=== PATIENT | female | born 1985 | race Caucasian/White ===

== ENCOUNTER 2020-09-23 15:39 | Emergency (ER) | payer OTHER, MEDICAID ==
[~2020-09-23] VITALS: Ht 157.5 cm; Wt 52.2 kg
--- NOTE | 2020-09-23 15:45 | NUR ---
BIB [facility] 88 FROM AN APARTMENT COMPLEX,ACTING BIZARRE,BLOOD SUGAR 197. THE PATIENT IS ALERT AND ORIENTED X2. DENIES PAIN. IN ROOM AIR AND DENIES SOB. RESPIRATION REGULAR AND UNLABORED. ATTACHED ON A MONITOR. WILL CONTINUE TO MONITOR THE PATIENT.
[2020-09-23] MEDS ORDERED: OLANZAPINE 10 MG VIAL IM ONE ×2 (16:00→16:08)
[2020-09-23 16:28] LABS: BASOPHILS % (AUTO) 0.1 % (0.0-2.0); EOSINOPHILS % (AUTO) 0.1 % (0.0-6.0); HEMATOCRIT 42 % (33-45); HEMOGLOBIN 13.6 g/dL (11.5-14.8); LYMPHOCYTES # (AUTO) 0.4 /CMM (0.8-4.8); LYMPHOCYTES % (AUTO) 3.7 % (20.0-44.0); MEAN CORPUSCULAR HGB CONC 33 g/dl (31.0-36.0); MEAN CORPUSCULAR VOLUME 85 fL (82-100); MONOCYTES # (AUTO) 0.4 /CMM (0.1-1.30); NEUTROPHILS % (AUTO) 92.1 % (43.0-81.0); PLATELET COUNT (AUTO) 227 /CMM (150-450); WHITE BLOOD COUNT (AUTO) 9.8 K/uL (4.3-11.0)
[2020-09-23 16:32] LABS: CALCIUM, SERUM 8.2 mg/dL (8.5-10.1); CARBON DIOXIDE 21 mmol/L (21-32); CHLORIDE 103 mmol/L (98-107); CREATININE 1.2 mg/dL (0.6-1.3); GLUCOSE 208 mg/dL (74-106); SODIUM SERUM 137 mmol/L (136-145); UREA NITROGEN, BLOOD 19 mg/dL (7-18)
--- NOTE | 2020-09-23 16:33 | NUR ---
URINE COLLECTED AND SENT TO THE LAB
[2020-09-23 16:53] LABS: ACETAMINOPHEN 3 ug/ml (10-30); ALANINE AMINOTRANSFERASE 23 U/L (12-78); ALBUMIN 3.6 g/dL (3.4-5.0); ALKALINE PHOSPHATASE 41 U/L (46-116); ASPARTATE AMINOTRANSFERASE 19 U/L (15-37); BILIRUBIN,DIRECT 0.1 mg/dL (0.0-0.2); BILIRUBIN,TOTAL 0.7 mg/dL (0.2-1.0); TOTAL PROTEIN, SERUM 6.8 g/dL (6.4-8.2)
[2020-09-23 16:58] LABS: ALCOHOL, BLOOD < 3 mg/dL (0-0)
--- NOTE | 2020-09-23 17:24 | NUR ---
THE PATIENT CALM AND COOPERATIVE. RESTING IN BED.
[2020-09-23 17:35] LABS: BILIRUBIN,URINE NEGATIVE (NEGATIVE); COLOR,URINE YELLOW (YELLOW); LEUKOCYTE ESTERASE ,URINE NEGATIVE (NEGATIVE); NITRITE, URINE NEGATIVE (NEGATIVE); PROTEIN,URINE TRACE mg/dl (NEGATIVE); UGLUCOSE NEGATIVE (NEGATIVE); UROBILINOGEN,URINE 0.2 EU/dL (0.2)
[2020-09-23 17:43] LABS: BACTERIA,URINE Many /HPF (None Seen); SQUAMOUS EPITHELIAL CELL,UR Many /HPF (None Seen)
[2020-09-23 17:44] LABS: CALCIUM OXALATE CRYSTALS,UR Few /HPF (None Seen); RBC,URINE 0-2 /HPF (0-2); WBC,URINE 0-2 /HPF (0-3); YEAST,URINE Many /HPF (None Seen)
--- NOTE | 2020-09-23 18:18 | NUR ---
re-eval by dr liu,boyfriend at bedside,juan gonzalez called for psych eval and clearance
[2020-09-23] MEDS ORDERED: LORA-259 PO (19:34)
--- NOTE | 2020-09-23 20:07 | NUR ---
Patient discharged to home in stable condition. Written and verbal after care instructions given. Patient verbalizes understanding of instruction. Pt S/O at bedside to take pt home. pt [id number] no acute distress noted, resp even and unlabored. pt denies si/hi at this time.
[2020-09-23 20:08] VITALS: BP 127/64
== END 2020-09-23 20:09 | disposition home or self-care (01) ==
LOC: ER 15:39
DX: F23 Brief psychotic disorder (principal)
CPT/HCPCS: 36415; 80048; 80076; 80299; 80307; 80320; 81001; 84703; 85025; 87086; 96372; 99283; J3490; G0480